=== PATIENT | female | born 2000 | race Two or more races ===

== ENCOUNTER 2023-08-28 19:56 | Emergency (ER) | payer OTHER ==
[~2023-08-28] VITALS: Ht 160 cm; Wt 62.6 kg
[2023-08-28 20:54] LABS: HEMATOCRIT 40.1 % (36.0-45.00); HEMOGLOBIN 13.6 g/dL (12.0-15.00); MEAN CELL VOLUME 85.7 fL (80.00-100.00); MEAN CORPUSCULAR HEMOGLOBIN 29.1 pg (27.00-32.0); PLATELET COUNT 198 K/uL (150-450); RED BLOOD COUNT 4.68 M/uL (4.00-6.00); RED CELL DISTRIBUTION WIDTH 13.2 % (11.5-14.5)
[2023-08-28 21:24] LABS: ANION GAP 8 (10.0-20.0); BLOOD UREA NITROGEN 15 mg/dL (7-18); BUN CREA RATIO 14 (7.0-25.0); CALCIUM 8.8 mg/dL (8.5-10.1); CARBON DIOXIDE 30 mEq/L (21-32); CHLORIDE 103 mmol/L (98-107); CREATININE SERUM 1.06 mg/dL (0.55-1.02); GFR 65.44; GLUCOSE FASTING 121 mg/dL (65-100); OSMOLALITY SERUM 276 MOSM/KG (275-295); PHOSPHOKINASE CREATININE 183 U/L (26-192); POTASSIUM 3.91 mEq/L (3.5-5.1); SODIUM 137 mmol/L (136-145)
[2023-08-28 21:31] LABS: HCG QUANTITATIVE < 1 mUI/mL (1-3)
[2023-08-28 23:06] LABS: URINE APPEARANCE Clear; URINE BILIRRUBIN Negative (NEGATIVE); URINE BLOOD Negative; URINE COLOR Yellow; URINE GLUCOSE Negative (NEGATIVE); URINE LEUKOCYTE Small; URINE NITRATE Negative; URINE PROTEIN Negative (NEGATIVE)
[2023-08-28 23:10] LABS: URINE BACTERIA 881.9 uL (0.0-1933); URINE EPITHELIAL CELLS 11.7 uL (0.0-38.8); URINE RBC 2.1 uL (0.0-20.8); URINE WBC 30.8 uL (0.0-23.2)
[2023-08-29 00:06] LABS: COCAINE NEGATIVE (NEGATIVE); METHADONE NEGATIVE (NEGATIVE); OPIATES NEGATIVE (NEGATIVE); THC ( Cannabinoids) POSITIVE (NEGATIVE)
== END 2023-08-29 01:00 | disposition home or self-care (01) ==
LOC: ER 19:56
PROVIDERS: General Practice
DX: R55 Syncope and collapse (principal); T40.715A Adverse effect of cannabis, initial encounter; R53.81 Other malaise; Z20.822 Contact with and (suspected) exposure to COVID-19